=== PATIENT | female | born 1950 | race Hispanic/Latino ===

== ENCOUNTER → 2024-05-12 | Outpatient (CLI) | payer MEDICARE ==
[2024-05-12 09:52] LABS: MEAN CORPUSCULAR HEMOGLOBIN 30.5 pg (27.0-33.0); MEAN CORPUSCULAR HGB CONC 33.5 g/dL (32.0-36.0); MEAN CORPUSCULAR VOLUME 90.9 fL (79-99); RED BLOOD CELL COUNT(AUTO) 4.4 MIL/uL (4.00-5.50); RED CELL DISTRIBUTION WIDTH 12.6 % (11.0-15.5)
[2024-05-12 10:02] LABS: HEMOGLOBIN A1C 5.4 % (4.0-6.0)
[2024-05-12 10:17] LABS: ALBUMIN 3.9 g/dL (3.5-5.0); BILIRUBIN,TOTAL 0.6 mg/dL (0.2-1.0); CREATININE 0.5 mg/dL (0.5-1.0); POTASSIUM 3.8 mmol/L (3.5-5.1); THYROID STIMULATING HORMONE 1.25 uIU/mL (0.36-3.74); TOTAL PROTEIN, SERUM 7.2 g/dL (6.0-8.3)
== END | disposition home or self-care (01) ==
LOC: LAB 09:01
PROVIDERS: ATTEND Internal Medicine Endocrinology, Diabetes & Metabolism
DX: E04.2 Nontoxic multinodular goiter (principal); E78.2 Mixed hyperlipidemia; R73.03 Prediabetes; E21.0 Primary hyperparathyroidism
CPT/HCPCS: 36415; 80053; 80061; 82306; 83036; 83970; 84439; 84443; 85027

== ENCOUNTER 2025-06-08 00:16 | Emergency (ER) | payer MEDICARE ==
[~2025-06-08] VITALS: Ht 162.6 cm; Wt 75.7 kg
--- NOTE | 2025-06-08 00:46 | ERN ---
ED Note History of Present Illness Stated Complaint: C/O PAIN TO LEFT THUMB W/ FREQUENT URINATION Chief Complaint: Thumb Injury Pain Time Seen by MD: 00:31 Time Seen by Midlevel: 00:31 Dictation: The patient is a 74-year-old female with a history of cholecystectomy, hypertension who presents to the emergency department with complaints of frequent urination and burning urination onset today. Patient reported a low- grade fever of 100.1 at home. Denies any abdominal pain, denies nausea or vomiting, denies diarrhea. Patient reports she also cut her left thumb on Saturday. Reports she did not seek any help. Reports she is up-to-date with her tetanus. Allergies: Coded Allergies: No Known Allergies (Unverified Allergy, Unknown, 06/08/25) Past Medical History Past Medical History: Hypertension Surgical History: Cholecystectomy RN Note Reviewed/Agreed w/PFSH: Yes Review of System Dictation Constitutional: Negative for fever,chills, and weight loss Eyes: Negative for injury, pain,redness, and discharge ENT: Negative for injury,pain or swelling Cardiovascular: Negative for chest pain, palpitations, and edema Respiratory: Negative for shortness of breath, cough, and wheezing, Abdomen/GI: Negative for abdominal pain, nausea, vomiting, diarrhea, and con stipation Back: Negative for injury and pain : Positive for burning urination MS/Extremity: Negative for injury and deformity Skin: Negative for rash, and discoloration possible for wound to left thumb Neuro: Negative for headache, weakness, numbness, tingling, and seizure Psych: Negative for suicide ideation, homicidal ideation, and hallucinations Initial Vital Sign VS Vital Signs Date Time Temp Pulse Resp B/P (MAP) Pulse Ox O2 Delivery O2 Flow Rate FiO2 06/08/25 00:20 98.8 89 20 153/80 99 Room Air 06/08/25 01:09 0 21 Physical Exam Dictation Vital Signs reviewed General Appearance: Alert, oriented x 3, no acute distress, well developed, nourished. Head and Face: non-traumatic. Eyes: PERRL, pink conjunctivas, eyelid no trauma, anterior chamber with arcus senilis. Ears: Pinnas intact and no signs of trauma or erythema ear canals clear and no discharge TM no erythema Nose: No discharge, no bleeding. Oropharynx: Mouth normal, tongue pink. pharynx clear,no erythema, tonsils no exudates, no abscesses noted, mucous membrane moist Neck: Supple, non-tender, no thyromegaly, no masses, no JVD, no bruits Breast:Deferred Chest:No tenderness, no crepitus, no paradoxical movement, no retractions Lungs:Clear, well-ventilated, symmetric, no rales, no wheezing, no rhonchi, no stridor, good breath sounds bilaterally Heart: Regular rate, regular rhythm, no murmur, no gallops Vascular: no peripheral edema, Abdomen: Soft, positive bowel sounds, nondistended, no guarding, nontender, no rebound, no masses no hepatomegaly, no splenomegaly, no Davis's sign, no hernias. Rectal: Deferred Genital: Deferred Neurological: Normal speech, motor function intact, sensory function intact Musculoskeletal: Neck nontender, full range of motion, back nontender, full range of motion, Extremities: nontender, full range of motion Skin: Color pink, dry, no turgor, no rash, no lacerations, no abrasions, no contusions. Scab noted to left distal thumb, no active bleeding, mild swelling Lymphatic: Deferred Results (Laboratory/Radiology) Laboratory/Radiology Laboratory Tests Test 06/08/25 00:23 06/08/25 01:07 Urine Color LIGHT-YELLOW (YELLOW) Urine Appearance CLEAR (CLEAR) Urine pH 5.5 (5.0-8.0) Urine Specific [place] 1.012 (1.001-1.031) Urine Protein NEGATIVE mg/dL (NEGATIVE) Urine Glucose (UA) NEGATIVE mg/dL (NEGATIVE) Urine Ketones NEGATIVE mg/dL (NEGATIVE) Urine Occult Blood SMALL (NEGATIVE) H Urine Nitrate NEGATIVE (NEGATIVE) Urine Bilirubin NEGATIVE mg/dL (NEGATIVE) Urine Urobilinogen 0.2 mg/dL (0.2-1.0) Urine Leukocyte Esterase 75 [place]/uL (NEGATIVE) H Urine RBC 6-10 /HPF (0-1) H Urine WBC 11-25 /HPF (0-1) H Urine Squamous Epithelial Cells FEW /HPF (0-2) Urine Bacteria RARE /HPF (None Seen) White Blood Count 11.7 K/uL (4.8-10.8) H Red Blood Count 4.51 MIL/uL (4.00-5.50) Hemoglobin 13.6 g/dL (12.0-16.0) Hematocrit 41.2 % (36-48) Mean Corpuscular Volume 91.4 fL (79-99) Mean Corpuscular Hemoglobin 30.2 pg (27.0-33.0) Mean Corpuscular Hemoglobin Concent 33.0 g/dL (32.0-36.0) Red Cell Distribution Width 12.7 % (11.0-15.5) Platelet Count 216 K/uL (130-400) Mean Platelet Volume 10.2 fL (7.5-10.5) Immature Granulocyte % (Auto) 0.3 % (0-1) Neutrophils (%) (Auto) 71.2 % (40.0-77.0) Lymphocytes (%) (Auto) 22.1 % (21.0-51.0) Monocytes (%) (Auto) 5.0 % (3.0-13.0) Eosinophils (%) (Auto) 1.1 % (0.0-8.0) Basophils (%) (Auto) 0.3 % (0.0-5.0) Neutrophils # (Auto) 8.3 K/uL (1.8-7.7) H Lymphocytes # (Auto) 2.6 K/uL (1.0-4.8) Monocytes # (Auto) 0.6 K/uL (0.1-1.0) Eosinophils # (Auto) 0.13 K/uL (0.00-0.70) Basophils # (Auto) 0.04 K/uL (0.00-0.20) Absolute Immature Granulocyte (auto 0.04 K/uL (0-1) Nucleated Red Blood Cells 0.0 % (0.0-0.19) Sodium Level 140 mmol/L (136-145) Potassium Level 3.5 mmol/L (3.5-5.1) Chloride Level 100 mmol/L (101-111) L Carbon Dioxide Level 31 mmol/L (21-32) Blood Urea Nitrogen 17 mg/dL (7-18) Creatinine 0.5 mg/dL (0.5-1.0) Glomerular Filtration Rate Calc 100 mL/min (>90) Random Glucose 107 mg/dL (70-105) H Total Calcium 9.6 mg/dL (8.5-10.1) Labs Reviewed?: Yes ED Course ED Course Orders Procedure Category Date Status Time Urinalysis Profile LAB 06/08/25 Complete 00:26 Cbc With Differential LAB 06/08/25 Complete 00:26 Basic Metabolic Panel LAB 06/08/25 Complete 00:26 Finger(S) 2+Vws Lt RAD 06/08/25 Taken 00:29 Culture Urine ZEFERINO 06/08/25 In Process 00:56 Ceftriaxone 1g Vial PHA 06/08/25 Complete (Rocephine 1g Inj) 02:00 Current Medications Medications (Trade) Dose Ordered Sig/Mark Route PRN Reason Start Time Stop Time Status Last Admin Dose Admin Ceftriaxone Sodium (ROCEphine 1G INJ) 1 gm ONCE ONCE IM 06/08/25 02:00 06/08/25 02:29 DC 06/08/25 02:33 Vital Signs Date Time Temp Pulse Resp B/P (MAP) Pulse Ox O2 Delivery O2 Flow Rate FiO2 06/08/25 01:09 98.2 83 18 135/67 96 Room Air* 0 21 06/08/25 00:20 98.8 89 20 153/80 99 Room Air Medical Decision Making MDM The patient is a 74-year-old female with a history of cholecystectomy, hypertension who presents to the emergency department with complaints of frequent urination and burning urination onset today. Patient reported a low- grade fever of 100.1 at home. Denies any abdominal pain, denies nausea or vomiting, denies diarrhea. Patient reports she also cut her left thumb on Saturday. Reports she did not seek any help. Reports she is up-to-date with her tetanus. CBC showed mild leukocytosis, no anemia, chemistry showed no electrolyte imbalance, urinalysis positive leukocyte esterase. Patient with a scab noted to her left thumb, no drainage, mild swelling. appears To be healing well. We will treat patient with antibiotics for UTI. Labs and imaging discussed with the patient who agrees to be discharged. At this time patient would like to go home. Patient instructed to follow up with PCP. Patient in no acute distress, nontoxic appearance, afebrile. Differential diagnosis: UTI, pyelonephritis, sepsis, finger injury Need for hospitalization: Patient does not meet criteria for hospitalization. There are no social concerns with this patient. DX & DISP Disposition: Discharge Departure Impression: Primary Impression: UTI (urinary tract infection) Additional Impression: Injury of left thumb Condition: Stable Scripts Cephalexin Monohydrate (Keflex) 500 Mg Cap 500 MG PO QID for 7 Days, #28 CAP Prov: PEDRITO WHEAT POLA 06/08/25 Additional Instructions: The urinalysis showed a urinary tract infection. Please take your antibiotics as prescribed. Follow up with the primary doctor in 1-2 days. If symptoms wor sen or do not improve please return to ER. FOLLOW-UP WITH PRIMARY CARE PROVIDER IN 1 TO 2 DAYS. TAKE MEDICATIONS DIRECTED HERE IN THE EMERGENCY ROOM. OKAY TO CONTINUE HOME MEDICATIONS UNLESS OTHERWISE DISCUSSED DURING YOUR VISIT IN THE EMERGENCY ROOM TODAY. RETURN TO YOUR NEAREST EMERGENCY ROOM IF SYMPTOMS WORSEN OR IF THERE IS NO IMPROVEMENT. CALL 911 IF YOU NEED IMMEDIATE ASSISTANCE. TAKE TYLENOL [id number] NEEDED AND IF NO CONTRAINDICATIONS ARE PRESENT. INCREASE ORAL HYDRATION. A WOUND CULTURE OR URINE CULTURE WAS ORDERED HERE IN THE EMERGENCY ROOM DEPARTMENT PLEASE FOLLOW-UP WITH PRIMARY CARE PROVIDER AND ADVISE THEM TO GET REPEAT PORTS FROM OUR FACILITY. IF YOU HAD ANY KIMI WRAP/SPLINTS THAT WERE APPLIED HERE, PLEASE DO NOT REMOVE THEM UNTIL YOU SEE YOUR PRIMARY CARE OR SPECIALTY. Referrals: CHARLIE ESPITIA MD (PCP) Time of Disposition: 02:43 I have reviewed the case, and I agree with, Diagnosis and Plan PEDRITO WHEAT POLA Jun 08, 2025 00:46
[2025-06-08 00:54] LABS: APPEARANCE,URINE CLEAR (CLEAR); GLUCOSE, URINE (UA) NEGATIVE (NEGATIVE); LEUKOCYTE ESTERASE ,URINE 75 Leu/uL (NEGATIVE); NITRATE,URINE NEGATIVE (NEGATIVE); OCCULT BLOOD,URINE SMALL (NEGATIVE)
[2025-06-08 00:56] LABS: ADD UA MICROSCOPIC YES
[2025-06-08 00:57] LABS: SQUAMOUS EPITHELIAL CELL,UR FEW /HPF (0-2)
[2025-06-08 01:09] VITALS: BP 135/67; PULSE 83; RESP 18; TEMP 98.3; O2SAT 96
[2025-06-08 01:14] LABS: IMMATURE GRANULOCYTE ABSOLUTE 0.04 K/uL (0-1); NUCLEATED RED BLOOD CELLS 0.0 % (0.0-0.19); PLATELET COUNT (AUTO) 216 K/uL (130-400); RED BLOOD CELL COUNT(AUTO) 4.51 MIL/uL (4.00-5.50); RED CELL DISTRIBUTION WIDTH 12.7 % (11.0-15.5); WHITE BLOOD COUNT (AUTO) 11.7 K/uL (4.8-10.8)
[2025-06-08 01:23] LABS: CREATININE 0.5 mg/dL (0.5-1.0); GLOMERULAR FILTR. RATE CALC 100.0 mL/min (>90); GLUCOSE,RANDOM 107.0 mg/dL (70-105); SODIUM SERUM 140.0 mmol/L (136-145); UREA NITROGEN, BLOOD 17.0 mg/dL (7-18)
--- NOTE | 2025-06-08 02:58 | HMCIMG ---
EXAM: CR left Finger, 3 Views. CLINICAL HISTORY: INJURY COMPARISON: None provided. FINDINGS: BONES: No acute fracture or aggressively appearing osseous lesion. JOINTS: No dislocation. The joint spaces are normal. SOFT TISSUES: The soft tissues are unremarkable. Accessory ossicle noted adjacent to the proximal end of the proximal and distal phalanx of the thumb. IMPRESSION: No acute osseous abnormality. No acute fracture or dislocation. /[place]
== END 2025-06-08 03:00 | disposition home or self-care (01) ==
LOC: EDH 00:16
DX: S69.92XA Unspecified injury of left wrist, hand and finger(s), initial encounter (principal); R35.0 Frequency of micturition; R30.9 Painful micturition, unspecified; N39.0 Urinary tract infection, site not specified; I10 Essential (primary) hypertension; Z90.49 Acquired absence of other specified parts of digestive tract; X58.XXXA Exposure to other specified factors, initial encounter; Y93.89 Activity, other specified; Y92.89 Other specified places as the place of occurrence of the external cause; Y99.8 Other external cause status
CPT/HCPCS: 99284; 80048; 85025; 87086 ×2; 87186; 81001; 36415; 73140; 96372; J0696